=== PATIENT | male | born 1985 | race Caucasian/White ===

== ENCOUNTER 2018-07-07 08:15 | Observation (INO) | payer OTHER ==
[2018-07-06 10:59] VITALS: BMI 30.8
[2018-07-07] MEDS ORDERED: Fentanyl 100 MCG/2 ML VIAL ONE ×3 (08:53→12:13)
[2018-07-07] MEDS ORDERED: Midazolam HCl 2 mg/2 ml Vial ONE (08:53)
[2018-07-07] MEDS ORDERED: HYDROcodone/Acetaminophen 7.5/325 mg Tablet PO PRN (09:31)
[2018-07-07] MEDS ORDERED: Bisacodyl 10 MG SUPP PR PRN (09:31)
[2018-07-07] MEDS ORDERED: Ondansetron PF 4 MG/2 ML Vial IVP PRN (09:31)
[2018-07-07] MEDS ORDERED: Morphine 4 MG/ML VIAL SLOW IVP PRN (09:31)
[2018-07-07] MEDS ORDERED: Milk Of Magnesia 30 ML UDCUP PO PRN (09:31)
[2018-07-07] MEDS ORDERED: Zolpidem Tartrate 5 MG TAB PO PRN (09:31)
[2018-07-07] MEDS ORDERED: Acetaminophen 500 MG TAB PO PRN (09:31)
[2018-07-07] MEDS ORDERED: Methocarbamol 500 MG TAB PO PRN (09:31)
[2018-07-07] MEDS ORDERED: Morphine 2 MG/ML SYRINGE SLOW IVP PRN (09:31)
[2018-07-07] MEDS ORDERED: diphenhydrAMINE 50 MG CAP PO PRN (09:31)
[2018-07-07] MEDS ORDERED: Meperidine HCl/PF 25 MG/ML VIAL ONE (10:09)
[2018-07-07] MEDS ORDERED: hydrALAZINE 20 MG/ML VIAL ONE (11:15)
[2018-07-07] MEDS ORDERED: Promethazine HCl 25 MG/ML VIAL ONE (11:36)
[2018-07-07] MEDS ORDERED: Ketorolac Tromethamine 30 MG/ML VIAL IVP SCH (12:00)
--- NOTE | 2018-07-07 12:52 | OP ---
DATE OF PROCEDURE: 07/07/2018 PREOPERATIVE DIAGNOSIS: Left knee anterior cruciate ligament tear. POSTOPERATIVE DIAGNOSIS: Left knee anterior cruciate ligament tear. PROCEDURES PERFORMED: 1. Left knee exam under anesthesia. 2. Left knee arthroscopy with arthroscopically assisted anterior cruciate ligament reconstruction using autologous patellar tendon graft. SHEETER OPERATOR: Kayden Brewster PA-C BLOOD LOSS: Minimal. COMPLICATIONS: None. ANESTHESIA: He had a general anesthetic. He also had a preoperative block. IMPLANTS: Our implants to the left knee is a 7 x 25 metal interference screw on the femur. We used a bicortical screw and a smooth washer as a post on the tibia. DISPOSITION: He went to recovery room in stable condition. INDICATIONS: This is a 33-year-old male, injured his left knee about 3 to 4 weeks ago. At this time, he is presenting for reconstruction of his ligament. DESCRIPTION OF PROCEDURE: After all appropriate consent forms were explained and signed, he was taken back to the operative room and at this time, he was given a general anesthetic. Once all anesthesia was appropriate, an exam under anesthesia was performed of the left leg. Positive Diamond's was noted. He did have a grade 1/2 MCL injury, but was stable in full extension. He was stable laterally and had negative posterior drawer. At this time, a tourniquet was placed on the left thigh and the leg was then placed in the arthroscopic leg garcia. The limb was then prepped and draped in standard surgical fashion. Limb was exsanguinated and tourniquet was taken up to 300 mmHg. A 10 blade was used to incise down through skin. Bovie was used to coagulate any brisk venous bleeding. A new blade was used to take the paratenon off the underlying patellar tendon and at this time, a central third patellar tendon graft was harvested using the double 10 blade, saw, and osteotome. This was taken to the back table and made so that the femoral side was a size 10 and the tibial side was a size 11. We loosely closed our graft site with multiple interrupted Vicryl sutures. Inferolateral portal was then established. Scope was placed into the knee joint. A needle localization technique was then used to make a medial working portal. Diagnostic arthroscopy commenced in the notch. The ACL and PCL were evaluated. The PCL was intact. The ACL was found to be torn. Shaver was used to remove any remnant of the ACL at this time. The medial compartment was evaluated. It did open up nicely since the MCL had an injury. We were able to nicely visualize the entire medial meniscus on the superior and inferior surface. There was a small rent inferiorly only about 2 to 3 mm and was completely stable, was left alone. At this time, the lateral compartment was evaluated and this was found to be intact. Gutters were swept through, no loose bodies were noted and patellofemoral joint was also found to be in good condition. At this time, a notchplasty was performed using the shaver and the ashley in standard fashion and once this was done, the knee was flexed up and through the medial portal, we placed an [id number] guide and placed a pin up and out the anterolateral thigh. A 10 mm reamer was then used to ream our femoral tunnel to a depth of 30. All loose bony cartilaginous debris was removed from the knee joint at this time. At this time, the tibial guide was set at 60 degree since our tendon length was over 60 mm and at this time, a pin was placed up into the knee joint. Soft tissue was removed from around the pin and at this time, an 11 mm reamer was used to ream our tibial tunnel. Once this was done, again all loose bony cartilaginous debris was removed from the knee joint. We then went dry. We flexed the knee up one more time, placed a pin up and out the anterolateral thigh using this to pull our passing suture into the knee joint. We then pulled this down the tibial tunnel and used this to pull our graft into the knee. Once the femoral plug was inside its tunnel, a 7 x 25 metal interference screw was used to fixate the femoral side. We then pulled tight confirming a fixation on the tibia and at this time, the bone plug was inside the tibial tunnel with just a mm to out the orifice. We then drilled, tapped, and placed a bicortical screw with a smooth washer, tying our strings around this as opposed with the knee in essentially full extension and a posterior drawer being applied. At this time, the knee was taken through full range of motion under direct visualization with the camera, was found to not impinge in flexion or extension. The camera was removed. The knee was drained. We bone grafted our patellar and tibial sites. We ran a Vicryl to close our paratenon layer. A 2-0 Vicryl and surgical giovanni were used on skin. Bulky sterile dressing was then applied. Tourniquet was let down. Toes pinked up nicely. The patient was awakened. He was taken to recovery room in stable condition. All counts were correct at the end of the case and he did receive preoperative IV antibiotics. Job ID: [id number] [facility]
[2018-07-07] MEDS: Dextrose 5 %-0.45 % NaCl 1,000 ML IV SCH ×2 (13:31→18:29)
[2018-07-07] MEDS ORDERED: Bupivacaine HCl 0.5%/Epinephrine 1:200,000/PF 30 ml Vial ONE (13:35)
[2018-07-07] MEDS ORDERED: Ketorolac Tromethamine 30 MG/ML VIAL ONE (13:47)
[2018-07-07] MEDS ORDERED: PROPOFOL 200 MG/20 ML VIAL ONE (13:47)
[2018-07-07] MEDS ORDERED: Ondansetron PF 4 MG/2 ML Vial ONE (13:47)
[2018-07-07] MEDS ORDERED: Dexamethasone 20 MG/5 ML VIAL ONE (13:47)
[2018-07-07] MEDS: traMADol HCl 50 MG TAB PO PRN (14:55)
[2018-07-07] MEDS: Ketorolac Tromethamine 30 MG/ML VIAL IVP SCH ×2 (17:50→23:22)
[2018-07-07] MEDS: CEFAZOLIN 2 GM in Premix Bag 1 BAG IVPB SCH (18:22)
[2018-07-07] MEDS: Famotidine 20 MG TAB PO SCH (21:18)
[2018-07-07] MEDS: HYDROcodone/Acetaminophen 7.5/325 mg Tablet PO PRN (23:23)
[2018-07-08] MEDS: CEFAZOLIN 2 GM in Premix Bag 1 BAG IVPB SCH (00:37)
[2018-07-08] MEDS: Dextrose 5 %-0.45 % NaCl 1,000 ML IV SCH ×2 (04:48→07:45)
[2018-07-08] MEDS: Ketorolac Tromethamine 30 MG/ML VIAL IVP SCH ×2 (04:52→07:35)
[2018-07-08] MEDS: Famotidine 20 MG TAB PO SCH (07:24)
[2018-07-08] MEDS: traMADol HCl 50 MG TAB PO PRN (07:24)
[2018-07-08] MEDS: HYDROcodone/Acetaminophen 7.5/325 mg Tablet PO PRN (09:54)
[2018-07-08 11:54] VITALS: BP 156/95; TEMP 98.5
== END 2018-07-08 14:03 | disposition home or self-care (01) ==
LOC: SDC 08:15 → 3SE 13:17
PROVIDERS: ADMIT Orthopaedic Surgery; ATTEND Orthopaedic Surgery
PROC: 0MRP47Z Replacement of Left Knee Bursa and Ligament with Autologous Tissue Substitute, Percutaneous Endoscopic Approach (ICD-10-PCS; principal; 2018-07-07)
PROC: 3E0T3BZ Introduction of Anesthetic Agent into Peripheral Nerves and Plexi, Percutaneous Approach (ICD-10-PCS; 2018-07-08)
DX: S83.512A Sprain of anterior cruciate ligament of left knee, initial encounter (principal); S83.412A Sprain of medial collateral ligament of left knee, initial encounter; G89.18 Other acute postprocedural pain; X58.XXXA Exposure to other specified factors, initial encounter
CPT/HCPCS: 96374; 96375; 96376; C1713; G0378; J0131; J0360; J0670; J0690; J1100; J1885; J2175; J2250; J2405; J2550; J2704; J3010